=== PATIENT | male | born 1970 | race Caucasian/White ===

== ENCOUNTER 2022-11-18 04:53 | Emergency (ER) | payer BC, SELFPAY ==
[2022-11-18 04:59] VITALS: BP 178/107; PULSE 118; RESP 24; TEMP 36.6; O2SAT 97; BMI 40.5
--- NOTE | 2022-11-18 05:13 | PC.NURSE ---
patient exposed to poison juan pablo while doing yardwork. He began to have skin rash on bilateral arms and left bhagat. He has been to urgent care and got an injection of a steroid, but it did not help. He has been using topical ointments which also have not helped. His skin is edematous, swelling from fingers to upper arms. There are several open areas on each arm. Skin is seeping serous fluid.
[2022-11-18] MEDS: TRIAMCINOLONE ACETONIDE 40 MG/ML VIAL IM (05:44)
[2022-11-18] MEDS: CEPHALEXIN 500 MG CAPSULE PO (05:45)
[2022-11-18] MEDS: KETOROLAC TROMETHAMINE 60 MG/2 ML VIAL IM (05:45)
--- NOTE | 2022-11-18 05:50 | ED_ITS ---
HPI - General Adult General Chief complaint: Skin/Abscess/Foreign Body Stated complaint: SEEPING POISON ALLAN ARMS AND L LEG Time Seen by Provider: 11/18/22 05:18 History of Present Illness HPI narrative: This 51-year-old male presents for evaluation of a poison allan rash on both forearms and left lower leg. The patient states he was helping a friend clear an area 9 days ago. He was weed whacking and wearing short-sleeved shirt and long pants. The next day he started developing a pruritic rash on his left arm and had a giant welts on the left arm. The following day started developing a pruritic rash on the right arm and left lower leg. He went to urgent care and got a shot of a steroid but the symptoms have not improved. He has extensive redness, weeping, skin breakdown with excoriation. He does not have a fever. He is not diabetic. He states that he is continually having to wrap his arms because they are weeping so badly and when he goes to work his fingers swell up so badly that he cannot make a fist. Related Data Allergies Allergy/AdvReac Type Severity Reaction Status Date / Time No Known Drug Allergies Allergy Verified 11/18/22 05:03 Review of Systems ROS Status of ROS 10 or more systems reviewed and unremarkable except as noted in history and below [facility] Social History Smoking status: Light tobacco smoker Exam Narrative Exam Narrative: Nurses note and vital signs reviewed; The patient is tachycardic with a pulse of 118, afebrile, blood pressure is elevated at 170/107 he is not hypoxic with pulse ox of 97 percent on room air General: Non- toxic but uncomfortable appearing adult male, There is marked erythema, edema, skin breakdown and excoriation of both upper extremities, left greater than right, no respiratory distress Skin: There is marked erythema, edema, broken areas of skin with serous weeping on both upper extremities, left greater than right, the rashes circumferential on the left arm and nearly circumferential on the right arm. There are papules on the dorsal surfaces of the left and right hand consistent with poison allan rash. There is no skin rash on the patient's back. There is an approximately 10 x 10 area of erythema on the left lower leg. No lymphangitic streaking noted. Head: Normocephalic, atraumatic Eye: Normal conjunctiva, no drainage, EOMI. PERRL Ears, Nose, Mouth, and Throat: oral mucosa is moist. No oral lesions noted. There is no swelling of the tongue, uvula or pharyngeal soft tissues Cardiovascular: . An rhythm S1-S2, no murmurs rubs or gallops appreciated Respiratory: Patient is in no distress, no accessory muscle use, lungs are clear to auscultation, no wheezing, rales or rhonchi Back: non-tender, no CVA tenderness bilaterally to percussion. GI: Normal bowel sounds, no tenderness to palpation, no masses appreciated. No rebound, guarding, or rigidity noted. Musculoskeletal: The patient has no evidence of calf tenderness, no pitting edema, symmetrical pulses noted bilaterally Neurological: A&O x4, normal speech Psychiatric: Cooperative Constitutional Vital Signs, click to edit/add: Last Vital Signs Temp 97.8 F 11/18/22 04:59 Pulse 118 H 11/18/22 04:59 Resp 24 11/18/22 04:59 BP 178/107 H 11/18/22 04:59 Pulse Ox 97 11/18/22 04:59 O2 Del Method Room Air 11/18/22 04:59 Course Vital Signs Vital signs: Vital Signs Temperature 97.8 F 11/18/22 04:59 Pulse Rate 118 H 11/18/22 04:59 Respiratory Rate 24 11/18/22 04:59 Blood Pressure 178/107 H 11/18/22 04:59 Pulse Oximetry 97 11/18/22 04:59 Oxygen Delivery Method Room Air 11/18/22 04:59 Temperature 97.8 F 11/18/22 04:59 Pulse Rate 118 H 11/18/22 04:59 Respiratory Rate 24 11/18/22 04:59 Blood Pressure 178/107 H 11/18/22 04:59 Pulse Oximetry 97 11/18/22 04:59 Oxygen Delivery Method Room Air 11/18/22 04:59 Medical Decision Making MDM Narrative Medical decision making narrative: This patient presents with a poison allan rash on both arms and the left lower leg that has been present for the past 9 days and worsening despite having a steroid injection at urgent care. There is no involvement of his airway. His lungs are clear. He has marked weeping of this rash on the forearms bilaterally, left greater than right. Due to the next density in nature of the rash with weeping and skin splitting, breakdown and erythema with warmth he was medicated with 40 mg of IM Kenalog, 30 mg of IM Toradol and oral Keflex. He'll be discharged home with prednisone that he will not start for the next 3-5 days as the Kenalog starts wearing off and a prescription for Keflex. He was encouraged to stay cool, use cool baths and showers and I suggested a topical preparation calamine lotion and anesthetic spray. He is in agreement with this plan. He does not have a family physician but I encouraged him to find a local family physician to monitor his elevated blood pressure. He was encouraged to return to emergency department for fevers, worsening skin rash, any involvement of his airway, throat or mouth. Discharge Plan Discharge Chief Complaint: Skin/Abscess/Foreign Body Clinical Impression: Cellulitis, Contact dermatitis due to poison allan, Contact dermatitis Patient Disposition: Home, Self-Care Time of Disposition Decision: 05:45 Condition: Fair Instructions: Contact Dermatitis (ED), Cellulitis (ED), Poison Allan (ED) Stand Alone Forms: Portal Instructions Referrals: Physician,Non-Staff, MD [Primary Care Provider] - 1 week
== END 2022-11-18 06:30 | disposition home or self-care (01) ==
PROVIDERS: Emergency Provider Emergency Medicine
DX: L23.7 Allergic contact dermatitis due to plants, except food (principal); L03.114 Cellulitis of left upper limb; L03.113 Cellulitis of right upper limb; F17.210 Nicotine dependence, cigarettes, uncomplicated
CPT/HCPCS: 96372; 99284